=== PATIENT | female | born 1980 | race Caucasian/White ===

== ENCOUNTER 2018-12-18 17:20 | Emergency (ER) | payer MEDICAID, OTHER ==
[~2018-12-18] VITALS: Ht 157.5 cm; Wt 75.6 kg
[~2018-12-18 17:20] MED LIST: PRENATALS
[2018-12-18 18:01] VITALS: Ht 157.5 cm; Wt 75.6 kg
--- NOTE | 2018-12-18 20:49 | ERD ---
ER Documentation Chief Complaint Chief Complaint pt sent from pcp no heart tones 16 weeks denies pain HPI 38-year-old G5, P3 female in her 16th week no presents with complaint of demise. Patient was sent here by her PCP after seeing no heart tones on ultrasound earlier today. In addition PCP stated that her alpha- fetoprotein has been consistently abnormal for the past 3 months. PCP is requesting termination. Patient denies any abdominal pain, vaginal bleeding, or any other symptoms. Patient has had one miscarriage in the past. Denies allergies. Denies medical problems. ROS All systems reviewed and are negative except as per history of present illness. Medications Home Meds Reported Medications [Prenatals] No Conflict Check 03/03/11 Allergies Allergies: Coded Allergies: No Known Allergy (Unverified , 12/18/18) PMhx/Soc Medical and Surgical Hx: pt denies Medical Hx, pt denies Surgical Hx History of Surgery: Yes ( X2) Anesthesia Reaction: No Hx Neurological Disorder: No Hx Respiratory Disorders: No Hx Cardiac Disorders: No Hx Psychiatric Problems: No Hx Miscellaneous Medical Probl: No Hx Alcohol Use: No Hx Substance Use: No Hx Tobacco Use: No FmHx Family History: No diabetes, No coronary disease, No other Physical Exam Vitals Vital Signs Date Temp Pulse Resp B/P (MAP) Pulse Ox O2 O2 Flow FiO2 Time Delivery Rate 12/18/18 98.6 79 18 118/64 97 18:01 (82) Physical Exam Const: No acute distress Head: Atraumatic Eyes: Normal Conjunctiva ENT: Normal External Ears, Nose and Mouth. Neck: Full range of motion. No meningismus. Resp: Clear to auscultation bilaterally Cardio: Regular rate and rhythm, no murmurs Abd: Soft, non tender, non distended. Normal bowel sounds Skin: No petechiae or rashes Back: No midline or flank tenderness Ext: No cyanosis, or edema Neur: Awake and alert Psych: Normal Mood and Affect Procedures/MDM DIAGNOSTIC IMAGING REPORT Patient: SUHAIL BAIRD : 1980 Age: 38 Sex: F MR #: [id number] DOS: 12/18/182042 Ordering MD: GILMAR BARBER Location: [facility] Room/Bed: PROCEDURE: Obstetrical ultrasound . CLINICAL INDICATION: pelvic pain , demise TECHNIQUE: Multiple sonographic images of the pelvis were obtained utilizing a transabdominal technique. The images were reviewed on a PACS workstation. COMPARISON: None. FINDINGS: There is a single intrauterine present with the crown-rump length measuring 7.8 cm which corresponds to a calculated gestational age of 13 weeks and 6 days. No heart tones are identified. There is a 1.7 cm fibroid within the uterus. The placenta is anterior. The presentation is breech. The ovaries are not visualized. No significant free fluid is present within the pelvis. No abnormal adnexal m asses are present. RPTAT: AA IMPRESSION: Single intrauterine at 13 weeks and 6 days. No heart tones noted, consistent with demise. .Chucky Perez MD, MD Date Time Electronically viewed and signed by .Chucky Perez MD, on 12/18/2018 22:19 .S/ CC: GILMAR BARBER [id number] MDM: Ultrasound was performed the results confirmed demise. I spoke to Dr. Pederson who is the on-call labor and delivery rest and he stated that patient did not need to be admitted but rather could follow-up either with [facility] or with [facility] [place]. Gave patient information for [facility] and told her that it was her choice which patient wanted to use. I told patient to follow-up within 24 hours at [facility] her of these places.. Patient agreed to do so. Told patient to return to ER if she experience any cramping or vaginal bleeding. Patient discharged with strict ER precautions. Patient advised to follow up with PMD. All questions answered at discharge. Departure Diagnosis: Primary Impression: demise, less than 22 weeks Condition: Stable ADRIA BARBEREL Dec 18, 2018 20:49
[2018-12-18 23:37] VITALS: BP 119/69; PULSE 76; RESP 22
== END 2018-12-18 23:38 | disposition home or self-care (01) ==
LOC: FTE 17:20
DX: O02.1 Missed abortion (principal)
CPT/HCPCS: 76805; Z7502